=== PATIENT | male | born 1990 ===

== ENCOUNTER 2018-03-03 12:18 | Emergency (ER) | payer OTHER, SELFPAY ==
[2018-03-03 13:01] VITALS: BP 126/76; PULSE 104; RESP 17; TEMP 37.4; O2SAT 96
--- NOTE | 2018-03-03 13:05 | W.ED.GENAD ---
Discharge Plan Disposition Patient Disposition: HOME Condition: Stable Discharge Details Chief Complaint: PsychEval Clinical Impression: Hallucinations, Suicidal thoughts Primary Care Provider: JERRELL,LOCAL ED Provider: Yara Ross Home Meds and New Rx's Prescriptions: No Action No Known Home Meds RF: 0 Discharge Instructions Instructions: Suicide Prevention for Adults (ED), Psychiatric Hallucinations (ED) Additional Instructions: Please return immediately to the emergency department if you develop any new or worsening symptoms or if you become otherwise concerned. It is extremely important that you make an appointment to be seen by your primary care doctor within the next 1-2 weeks in follow-up for this visit. It is strongly advised that you cancel your travel plans and return home to be with family or friends that you trust and seek treatment from a physician. Discharge Data Discharge Date/Time-TO BE ENTERED AT DEPARTURE: 03/03/18 17:00 Medical Decision Making Brenda Araujo is a 27 y/o man without reported h/o major medical problems who presented to the emergency department with c/o hallucinations, feeling out of touch with reality, and suicidal thoughts without intent. On exam Pt is calm and cooperative, well and non-toxic. Normal behavior, normal thought process, no apparent hallucinations beyond Pt report. Somewhat odd affect. Exam/hx not c/w h/o self-injury, raymundo, salicylate OD, intoxication, active suicidality. Concern for possible schizophrenia vs other psychosis. Given long-standing symptoms, doubt organic etiology. Pt has decision-making capacity by my evaluation. Pt declines CT head. Plan for screening labs, screening EKG, IVF hydration, MH eval. states inpt treatment offered to Pt for psychotic symptoms, Pt declined. No indication to hold Pt against his will, which is in concordance with my evaluation. Pt stating that he does want further care at this time, and would prefer to f/u outpt when he leaves [place] and goes to [place] in a few days where he will be staying with friends. He does have plans to travel out of the country several weeks after going to [place]. He again states repeatedly that he does not now nor has he ever had intent to harm himself. He also states that he would not have sought care in the ED except that staff at meditation retreat wanted him to be evaluated for hallucinations, which is verified by retreat staff in the room (brought in from [facility] at request of Pt). Pt has capacity for decision-making. Lengthy discussion with Pt re: RTED precautions and importance of outpt f/u with PCP and psychiatry for further eval and treatment, also discussed that long-distance travel should be delayed until Pt has undergone treatment and symptoms are better-managed. Pt is amenable to plan, is discharged back to medication retreat with staff member. Medical Records Medical records reviewed: Yes I reviewed the patient's medical records. Lab Data Lab results reviewed: Yes I reviewed the patient's lab results. 03/03/18 13:55 Urine - Reflex from Ua Urine Culture - Final Gram Positive [facility] Laboratory Tests Range/Units 03/03/18 03/03/18 03/03/18 13:55 13:55 14:22 WBC (4.4-10.8) k/cumm RBC (4.50-6.00) m/cumm Hgb (13.5-17.5) g/dL Hct (40.0-50.0) % MCV (80-95) fL MCH (27.0-33.0) pg MCHC (32.0-36.0) g/dL RDW (11.8-14.1) % Plt Count (130-400) x1000/uL MPV (8.0-11.0) fL Immature Gran % Neutrophils % Lymphocytes % Monocytes % Eosinophils % Basophils % Absolute Neutrophils (1.2-6.7) k/cumm Absolute Lymphocytes (1.2-3.4) k/cumm Absolute Monocytes (0.11-0.7) k/cumm Absolute Eosinophils (0.0-0.7) k/cumm Absolute Basophils (0.0-0.2) k/cumm Sodium (136-145) mmol/L Potassium (3.5-5.1) mmol/L Chloride (98-107) mmol/L Carbon Dioxide (21.0-32.0) mmol/L Anion Gap (3-11) mmol/L BUN (7-18) mg/dL Creatinine (0.70-1.30) mg/dL Estimated GFR/1.73 m2 (mL/min/1.73m2) Glucose (70-100) mg/dL Calcium (8.5-10.1) mg/dL Total Bilirubin (0.2-1.0) mg/dL AST (15-37) U/L ALT (12-78) U/L Alkaline Phosphatase (46-116) U/L Total Protein (6.4-8.2) g/dL Albumin (3.4-5.0) g/dL TSH (0.358-3.74) uIU/mL 1.36 Urine Color (Yellow) Yellow Urine Clarity Clear Urine pH (5-8) 6.5 Ur Specific Riesel (1.005-1.025) 1.025 Urine Protein (Negative) mg/dL 100 H Urine Ketones (Negative) mg/dL >=160 Urine Blood (Negative) Negative Urine Nitrite (Negative) Negative Urine Bilirubin (Negative) Small H Urine Urobilinogen (Up TO 0.2) EU/dL 0.2 Ur Leukocyte Esterase (Negative) Negative Urine RBC (0-2) 0-2 Urine WBC (0-5) HPF 3-5 Ur Epithelial Cells (Negative) HPF Negative Urine Crystals (Negative) HPF Many amorphous Urine Bacteria (Negative) HPF Many Urine Casts (Negative) LPF Negative Urine Mucus (Negative) Heavy Urine Other (Negative) Rare renal Ur Culture Indicated? Yes Urine Glucose (Negative) mg/dL Negative Urine Opiates Screen (Negative) Negative Urine Methadone Screen (Negative) Negative Acetaminophen (10-30) ug/mL < 2 L Ur Barbiturates Screen (Negative) Negative Ur Tricyclics Screen (Negative) Negative Ur Amphetamines Screen (Negative) Negative U Benzodiazepines Scrn (Negative) Negative Urine Cocaine Screen (Negative) Negative Ur THC Screen (Negative) Negative Range/Units 03/03/18 03/03/18 14:22 14:22 WBC (4.4-10.8) k/cumm 8.95 RBC (4.50-6.00) m/cumm 4.56 Hgb (13.5-17.5) g/dL 14.9 Hct (40.0-50.0) % 44.4 MCV (80-95) fL 97.4 H MCH (27.0-33.0) pg 32.7 MCHC (32.0-36.0) g/dL 33.6 RDW (11.8-14.1) % 12.5 Plt Count (130-400) x1000/uL 241 MPV (8.0-11.0) fL 9.7 Immature Gran % 0.3 Neutrophils % 87.8 Lymphocytes % 6.9 Monocytes % 5.0 Eosinophils % 0.0 Basophils % 0.0 Absolute Neutrophils (1.2-6.7) k/cumm 7.85 H Absolute Lymphocytes (1.2-3.4) k/cumm 0.62 L Absolute Monocytes (0.11-0.7) k/cumm 0.45 Absolute Eosinophils (0.0-0.7) k/cumm 0.00 Absolute Basophils (0.0-0.2) k/cumm 0.00 Sodium (136-145) mmol/L 137 Potassium (3.5-5.1) mmol/L 3.7 Chloride (98-107) mmol/L 97 L Carbon Dioxide (21.0-32.0) mmol/L 27.6 Anion Gap (3-11) mmol/L 12.4 H BUN (7-18) mg/dL 12 Creatinine (0.70-1.30) mg/dL 1.08 Estimated GFR/1.73 m2 (mL/min/1.73m2) >= 60.00 Glucose (70-100) mg/dL 95 Calcium (8.5-10.1) mg/dL 9.1 Total Bilirubin (0.2-1.0) mg/dL 0.6 AST (15-37) U/L 34 ALT (12-78) U/L 22 Alkaline Phosphatase (46-116) U/L 71 Total Protein (6.4-8.2) g/dL 8.3 H Albumin (3.4-5.0) g/dL 3.9 TSH (0.358-3.74) uIU/mL Urine Color (Yellow) Urine Clarity Urine pH (5-8) Ur Specific Riesel (1.005-1.025) Urine Protein (Negative) mg/dL Urine Ketones (Negative) mg/dL Urine Blood (Negative) Urine Nitrite (Negative) Urine Bilirubin (Negative) Urine Urobilinogen (Up TO 0.2) EU/dL Ur Leukocyte Esterase (Negative) Urine RBC (0-2) Urine WBC (0-5) HPF Ur Epithelial Cells (Negative) HPF Urine Crystals (Negative) HPF Urine Bacteria (Negative) HPF Urine Casts (Negative) LPF Urine Mucus (Negative) Urine Other (Negative) Ur Culture Indicated? Urine Glucose (Negative) mg/dL Urine Opiates Screen (Negative) Urine Methadone Screen (Negative) Acetaminophen (10-30) ug/mL Ur Barbiturates Screen (Negative) Ur Tricyclics Screen (Negative) Ur Amphetamines Screen (Negative) U Benzodiazepines Scrn (Negative) Urine Cocaine Screen (Negative) Ur THC Screen (Negative) ECG Data Attestation: I personally reviewed and interpreted this ECG (s) as follows: Interpretation: EKG shows NSR at 76, nl axis, nl intervals. Non-diagnostic EKG. HPI General Mode of arrival: ambulatory. Date/Time Provider Initiated Documentation: 03/03/18 13:05. Limitations to Documentation: no limitations. Information obtained by: patient, RN notes reviewed and old records reviewed. HPI Narrative: Brenda Araujo is a 27 y/o man without reported h/o major medical problems presenting to the emergency department with c/o hallucinations, feeling out of touch with reality, and suicidal thoughts. Pt reports that he recently graduated from graduate school in [place] and has been attending a meditation retreat in this area for the past 11 days. He states that over the past few days he has been having hallucinations, both auditory and visual. He states the voices he hears are not organized and do not say anything specific to him. He states that the visual hallucinations are where he sees himself taking part in scenarios that he knows are not actually happening. Pt reports that he has occasional houghts of suicide by cutting his wrists, but he states that he does not want to and does not want to hurt himself. Has no intention of hurting himself, and states that thoughts of hurting himself and are transient and that he woud never act on them. He denies having auditory hallucinations instructing him to hurt himself. Pt denies any h/o self harm. Pt reports that he has been having hallucinations intermittently for the past 10 years, but states that he has not told anyone or sought medical treatment. He states that he has been able to manage them on his own. Pt was brought to the ED by staff at the meditation retreat when he told them that he was having the hallucinations. Pt reports that he has been sleeping normally but has not been eating or drinking much over the past few days. No homicidal ideation. No recent illness. Related Data Home Medications Medication Instructions Recorded Confirmed Unknown [No Known Home Meds] 03/03/18 03/03/18 Allergies Allergy/AdvReac Type Severity Reaction Status Date / Time No Known Allergies Allergy Unverified 03/03/18 14:07 General Stated Complaint: PsychEval TILA: 2 Review of Systems Review of Systems Constitutional: denies fevers Eyes: denies eye pain ENT: denies facial pain, dental pain, sore throat Cardiovascular: denies chest pain, edema Respiratory: denies SOB, cough GI: denies abdominal pain, vomiting, diarrhea : denies flank pain MSK: denies back pain, neck pain, arthralgias, myalgias Skin: denies rash Neuro: denies headaches, lightheadedness, weakness Psych: denies suicidal intent; reports suicidal thoughts, hallucinations [facility] Social History Smoking/Tobacco Use Status: Current-Occasional Exam Narrative Exam Narrative: Constitutional: well and day-[id number], pleasant, conversing normally HENT: head atraumatic, normocephalic normal inspection, mucous membranes moist Eyes: conjunctiva normal, sclera normal, pupils 3mm b/l Neck: no stridor, normal ROM, trachea midline Chest: normal inspection Resp: normal work of breathing, LCTAB Cardio: normal rate, normal rhythm, no murmur appreciated GI: abdomen soft, non-tender, non-distended Back: normal inspection, no rash Skin: warm, dry, normal color, no rash Neuro: alert and oriented x3, not altered, grossly non-focal, normal tone Ext: no edema Psych: normal mood, somewhat odd affect, normal behavior, no raymundo. Calm and cooperative. Lucid thought process. Course Vital Signs Temperature 37.4 C 03/03/18 13:01 Pulse 104 H 03/03/18 13:01 Respiratory Rate 17 03/03/18 13:01 Blood Pressure 126/76 03/03/18 13:01 Pulse Oximetry 96 03/03/18 13:01 Temperature 37.4 C 03/03/18 13:01 Temperature Source Temporal Artery Scan 03/03/18 13:01 Pulse 104 H 03/03/18 13:01 Respiratory Rate 17 03/03/18 13:01 Blood Pressure 126/76 03/03/18 13:01 Pulse Oximetry 96 03/03/18 13:01 Oxygen Delivery Method Room Air 03/03/18 13:01 Oxygen Flow Rate 0 03/03/18 13:01 Pain Level 0 03/03/18 13:01
--- NOTE | 2018-03-03 13:50 | PDOC.ERCMPRO ---
Care Management Progress Note 03/03-Patient in emergency department for suicidal ideation. Provider has ordered CPSO. Celia Nursing Industrial Technology Teacher is aware. Discussion with provider that a holding care plan be in place until mental health arrives and evaluates. Once patient is seen by mental health, a huddle will be called and a new care plan will be written and distributed to appropriate staff. [facility] 03/03/18 1. Suicide Precautions 2. Patient to be in paper clothing 3. Comfort bath system for personal hygiene 4. No personal belongings in room 5. Finger foods only 6. No telephone 7. No visitors 8. Supervised Bathroom Privileges 9. Patient to have one on one, licensed sitter, PLASTIC TILE SETTER, INDUSTRIAL AERIAL INSTALLER, meter changes records clerk. 10. May have crayons, paper, and activities (if appropriate) from the Mental Health Activity Cart in ED This is a holding care plan only. This Care Plan will remain in effect until mental health evaluates, huddle is held, and a new care plan written.
--- NOTE | 2018-03-03 13:55 | CMPROGNOTE_ITS ---
Care Management Progress Note 03/03-Patient in emergency department for suicidal ideation. Provider has ordered CPSO. Celia Nursing Academic Coach is aware. Discussion with provider that a holding care plan be in place until mental health arrives and evaluates. Once patient is seen by mental health, a huddle will be called and a new care plan will be written and distributed to appropriate staff. [facility] 03/03/18 1. Suicide Precautions 2. Patient to be in paper clothing 3. Comfort bath system for personal hygiene 4. No personal belongings in room 5. Finger foods only 6. No telephone 7. No visitors 8. Supervised Bathroom Privileges 9. Patient to have one on one, licensed sitter, HOTEL FRONT OFFICE MANAGER, WIND ENERGY SYSTEMS INSTALLER, early childhood educator aide. 10. May have crayons, paper, and activities (if appropriate) from the Mental Health Activity Cart in ED This is a holding care plan only. This Care Plan will remain in effect until mental health evaluates, huddle is held, and a new care plan written.
[2018-03-03 14:02] LABS: Bilirubin Small (Negative); Blood Negative (Negative); Clarity Clear; Glucose Negative (Negative); Ketones >=160 mg/dL (Negative); Leukocyte Esterase Negative (Negative); Nitrite Negative (Negative); Specific Gravity 1.025 (1.005-1.025); Urobilinogen 0.2 EU/dL (Up TO 0.2); pH 6.5 (5-8)
[2018-03-03 14:11] LABS: Bacteria Many HPF (Negative); C & S Indicated? Yes; Casts Negative LPF (Negative); Crystals Many Amorphous HPF (Negative); Epithelial Cells Negative HPF (Negative); Mucus Heavy (Negative); Other Cells Rare Renal (Negative); RBC 0-2 (0-2)
[2018-03-03 14:13] LABS: *AMPHETAMINES SCREEN URINE Negative (Negative); *BARBITURATES SCREEN URINE Negative (Negative); *BENZODIAZEPINES SCREEN URINE Negative (Negative); Cannabinoids THC Negative (Negative); Cocaine Screen,Urine Negative (Negative); METHADONE URINE SCREEN Negative (Negative); OPIATES URINE SCREEN Negative (Negative)
[2018-03-03 14:16] LABS: Tricyclic Antidepressants Negative (Negative)
[2018-03-03 14:28] LABS: Abs Immature Grans 0.03 k/cumm (0.0-0.09); Absolute Lymphocyte Count 0.62 k/cumm (1.2-3.4); Absolute Monocyte Count 0.45 k/cumm (0.11-0.7); Absolute Neutrophil Count 7.85 k/cumm (1.2-6.7); HCT 44.4 % (40.0-50.0); HGB 14.9 g/dL (13.5-17.5); Immature Grans % 0.3; Lymphocytes % 6.9; Mean Corp. HGB Concentration 33.6 g/dL (32.0-36.0); Mean Corpuscular Hemoglobin 32.7 pg (27.0-33.0); Mean Corpuscular Volume 97.4 fL (80-95); Mean Platelet Volume 9.7 fL (8.0-11.0); Neutrophils % 87.8; Platelet Count 241 x1000/uL (130-400); RBC 4.56 m/cumm (4.50-6.00); RBC Distribution Width 12.5 % (11.8-14.1); White Blood Cell Count 8.95 k/cumm (4.4-10.8)
[2018-03-03 14:42] LABS: ALT 22 U/L (12-78); AST 34 U/L (15-37); Albumin 3.9 g/dL (3.4-5.0); Alkaline Phosphatase 71 U/L (46-116); Anion Gap 12.4 mmol/L (3-11); BUN 12 mg/dL (7-18); Bilirubin, Total 0.6 mg/dL (0.2-1.0); CO2 27.6 mmol/L (21.0-32.0); CREATININE 1.08 mg/dL (0.70-1.30); Calcium 9.1 mg/dL (8.5-10.1); Chloride 97 mmol/L (98-107); Glucose 95 mg/dL (70-100); Potassium 3.7 mmol/L (3.5-5.1); Sodium 137 mmol/L (136-145); Total Protein 8.3 g/dL (6.4-8.2)
[2018-03-03] MEDS: Normal Saline 1,000 ML 1000 ML IV (14:47)
[2018-03-03 14:53] LABS: TSH (W/Ref FT4) 1.36 uIU/mL (0.358-3.74)
[2018-03-03 15:04] LABS: Acetaminophen < 2 ug/mL (10-30)
--- NOTE | 2018-03-03 16:56 | PDOC.MHCN ---
Date of service: 03/03/18 Time of Service: 16:58 Mental Health Crisis Note Presenting Issue How did you arrive at the ED and why did you come: Patient arrived at the hospital by private vehicle because he was experiencing suicidal ideation. Precipitating Factors Patient states that he did initially feel suicidal when he arrived at the hospital but he states that he feels much better now and would like to go home. He is future oriented and looks forward to upcoming travels to [email or web address] before starting a job in [employer] in April. The client states that he has had trouble with psychosis (audio/visual hallucinatoins) in the eric but has been able to work though episodes. He states that the voices in his head make him think negative thoughts Disposition BEHAVIOR: No abnormal behavior to report EYE CONTACT: Direct MOOD: Calm but anxious to leave and see his friend. AFFECT: Restricted APPETITE: Patient states good SLEEP(trouble falling/staying asleep: Patient states good Plan Patient has contracted for safety. He states that he will be safe if he leaves the hospital. Patient states that he wishes to go back to the meditation retreat he has been staying at for the last 10 days. Patient was advised to call [facility] anytime if he was to have thoughts or feelings of SI/HI. 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
--- NOTE | 2018-03-03 17:12 | PDOC.MHCN_ITS ---
Date of service: 03/03/18 Time of Service: 16:58 Mental Health Crisis Note Presenting Issue How did you arrive at the ED and why did you come: Patient arrived at the hospital by private vehicle because he was experiencing suicidal ideation. Precipitating Factors Patient states that he did initially feel suicidal when he arrived at the hospital but he states that he feels much better now and would like to go home. He is future oriented and looks forward to upcoming travels to [place] before starting a job in [place] in April. The client states that he has had trouble with psychosis (audio/visual hallucinatoins) in the eric but has been able to work though episodes. He states that the voices in his head make him think negative thoughts Disposition BEHAVIOR: No abnormal behavior to report EYE CONTACT: Direct MOOD: Calm but anxious to leave and see his friend. AFFECT: Restricted APPETITE: Patient states good SLEEP(trouble falling/staying asleep: Patient states good Plan Patient has contracted for safety. He states that he will be safe if he leaves the hospital. Patient states that he wishes to go back to the meditation retreat he has been staying at for the last 10 days. Patient was advised to call [facility] anytime if he was to have thoughts or feelings of SI/HI. 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
--- NOTE | 2018-03-04 14:45 | ED.GENADUL_ITS ---
Discharge Plan Disposition Patient Disposition: HOME Condition: Stable Discharge Details Chief Complaint: PsychEval Clinical Impression: Hallucinations, Suicidal thoughts Primary Care Provider: JERRELL,[facility] ED Provider: Yara Ross Home Meds and New Rx's Prescriptions: No Action No Known Home Meds RF: 0 Discharge Instructions Instructions: Suicide Prevention for Adults (ED), Psychiatric Hallucinations ( ED) Additional Instructions: Please return immediately to the emergency department if you develop any new or worsening symptoms or if you become otherwise concerned. It is extremely important that you make an appointment to be seen by your primary care doctor within the next 1-2 weeks in follow-up for this visit. It is strongly advised that you cancel your travel plans and return home to be with family or friends that you trust and seek treatment from a physician. Discharge Data Discharge Date/Time-TO BE ENTERED AT DEPARTURE: 03/03/18 17:00 Medical Decision Making Brenda Araujo is a 27 y/o man without reported h/o major medical problems who presented to the emergency department with c/o hallucinations, feeling out of touch with reality, and suicidal thoughts without intent. On exam Pt is calm and cooperative, well and non-toxic. Normal behavior, normal thought process, no apparent hallucinations beyond Pt report. Somewhat odd affect. Exam/hx not c/ w h/o self-injury, raymundo, salicylate OD, intoxication, active suicidality. Concern for possible schizophrenia vs other psychosis. Given long-standing symptoms, doubt organic etiology. Pt has decision-making capacity by my evaluation. Pt declines CT head. Plan for screening labs, screening EKG, IVF hydration, MH eval. states inpt treatment offered to Pt for psychotic symptoms, Pt declined. No indication to hold Pt against his will, which is in concordance with my evaluation. Pt stating that he does want further care at this time, and would prefer to f/u outpt when he [place] and [place] where he will be staying with friends. He does have plans to travel out of the country several weeks after going to [place]. He again states repeatedly that he does not now nor has he ever had intent to harm himself. He also states that he would not have sought care in the ED except that staff at meditation retreat wanted him to be evaluated for hallucinations, which is verified by retreat staff in the room (brought in from [facility] at request of Pt). Pt has capacity for decision- making. Lengthy discussion with Pt re: RTED precautions and importance of outpt f/u with PCP and psychiatry for further eval and treatment, also discussed that long-distance travel should be delayed until Pt has undergone treatment and symptoms are better-managed. Pt is amenable to plan, is discharged back to medication retreat with staff member. Medical Records Medical records reviewed: Yes I reviewed the patient's medical records. Lab Data Lab results reviewed: Yes I reviewed the patient's lab results. 03/03/18 13:55 Urine - Reflex from [facility] Urine Culture - Final Gram Positive [facility] Laboratory Tests Range/Units 03/03/18 03/03/18 03/03/18 13:55 13:55 14:22 WBC (4.4-10.8) k/cumm RBC (4.50-6.00) m/cumm Hgb (13.5-17.5) g/dL Hct (40.0-50.0) % MCV (80-95) fL MCH (27.0-33.0) pg MCHC (32.0-36.0) g/dL RDW (11.8-14.1) % Plt Count (130-400) x1000/uL MPV (8.0-11.0) fL Immature Gran % Neutrophils % Lymphocytes % Monocytes % Eosinophils % Basophils % Absolute Neutrophils (1.2-6.7) k/cumm Absolute Lymphocytes (1.2-3.4) k/cumm Absolute Monocytes (0.11-0.7) k/cumm Absolute Eosinophils (0.0-0.7) k/cumm Absolute Basophils (0.0-0.2) k/cumm Sodium (136-145) mmol/L Potassium (3.5-5.1) mmol/L Chloride (98-107) mmol/L Carbon Dioxide (21.0-32.0) mmol/L Anion Gap (3-11) mmol/L BUN (7-18) mg/dL Creatinine (0.70-1.30) mg/dL Estimated GFR/1.73 m2 (mL/min/1.73m2) Glucose (70-100) mg/dL Calcium (8.5-10.1) mg/dL Total Bilirubin (0.2-1.0) mg/dL AST (15-37) U/L ALT (12-78) U/L Alkaline Phosphatase (46-116) U/L Total Protein (6.4-8.2) g/dL Albumin (3.4-5.0) g/dL TSH (0.358-3.74) uIU/mL 1.36 Urine Color (Yellow) Yellow Urine Clarity Clear Urine pH (5-8) 6.5 Ur Specific [place] (1.005-1.025) 1.025 Urine Protein (Negative) mg/dL 100 H Urine Ketones (Negative) mg/dL >=160 Urine Blood (Negative) Negative Urine Nitrite (Negative) Negative Urine Bilirubin (Negative) Small H Urine Urobilinogen (Up TO 0.2) EU/dL 0.2 Ur Leukocyte Esterase (Negative) Negative Urine RBC (0-2) 0-2 Urine WBC (0-5) HPF 3-5 Ur Epithelial Cells (Negative) HPF Negative Urine Crystals (Negative) HPF Many amorphous Urine Bacteria (Negative) HPF Many Urine Casts (Negative) LPF Negative Urine Mucus (Negative) Heavy Urine Other (Negative) Rare renal Ur Culture Indicated? Yes Urine Glucose (Negative) mg/dL Negative Urine Opiates Screen (Negative) Negative Urine Methadone Screen (Negative) Negative Acetaminophen (10-30) ug/mL < 2 L Ur Barbiturates Screen (Negative) Negative Ur Tricyclics Screen (Negative) Negative Ur Amphetamines Screen (Negative) Negative U Benzodiazepines Scrn (Negative) Negative Urine Cocaine Screen (Negative) Negative Ur THC Screen (Negative) Negative Range/Units 03/03/18 03/03/18 14:22 14:22 WBC (4.4-10.8) k/cumm 8.95 RBC (4.50-6.00) m/cumm 4.56 Hgb (13.5-17.5) g/dL 14.9 Hct (40.0-50.0) % 44.4 MCV (80-95) fL 97.4 H MCH (27.0-33.0) pg 32.7 MCHC (32.0-36.0) g/dL 33.6 RDW (11.8-14.1) % 12.5 Plt Count (130-400) x1000/uL 241 MPV (8.0-11.0) fL 9.7 Immature Gran % 0.3 Neutrophils % 87.8 Lymphocytes % 6.9 Monocytes % 5.0 Eosinophils % 0.0 Basophils % 0.0 Absolute Neutrophils (1.2-6.7) k/cumm 7.85 H Absolute Lymphocytes (1.2-3.4) k/cumm 0.62 L Absolute Monocytes (0.11-0.7) k/cumm 0.45 Absolute Eosinophils (0.0-0.7) k/cumm 0.00 Absolute Basophils (0.0-0.2) k/cumm 0.00 Sodium (136-145) mmol/L 137 Potassium (3.5-5.1) mmol/L 3.7 Chloride (98-107) mmol/L 97 L Carbon Dioxide (21.0-32.0) mmol/L 27.6 Anion Gap (3-11) mmol/L 12.4 H BUN (7-18) mg/dL 12 Creatinine (0.70-1.30) mg/dL 1.08 Estimated GFR/1.73 m2 (mL/min/1.73m2) >= 60.00 Glucose (70-100) mg/dL 95 Calcium (8.5-10.1) mg/dL 9.1 Total Bilirubin (0.2-1.0) mg/dL 0.6 AST (15-37) U/L 34 ALT (12-78) U/L 22 Alkaline Phosphatase (46-116) U/L 71 Total Protein (6.4-8.2) g/dL 8.3 H Albumin (3.4-5.0) g/dL 3.9 TSH (0.358-3.74) uIU/mL Urine Color (Yellow) Urine Clarity Urine pH (5-8) Ur Specific [place] (1.005-1.025) Urine Protein (Negative) mg/dL Urine Ketones (Negative) mg/dL Urine Blood (Negative) Urine Nitrite (Negative) Urine Bilirubin (Negative) Urine Urobilinogen (Up TO 0.2) EU/dL Ur Leukocyte Esterase (Negative) Urine RBC (0-2) Urine WBC (0-5) HPF Ur Epithelial Cells (Negative) HPF Urine Crystals (Negative) HPF Urine Bacteria (Negative) HPF Urine Casts (Negative) LPF Urine Mucus (Negative) Urine Other (Negative) Ur Culture Indicated? Urine Glucose (Negative) mg/dL Urine Opiates Screen (Negative) Urine Methadone Screen (Negative) Acetaminophen (10-30) ug/mL Ur Barbiturates Screen (Negative) Ur Tricyclics Screen (Negative) Ur Amphetamines Screen (Negative) U Benzodiazepines Scrn (Negative) Urine Cocaine Screen (Negative) Ur THC Screen (Negative) ECG Data Attestation: I personally reviewed and interpreted this ECG (s) as follows: Interpretation: EKG shows NSR at 76, nl axis, nl intervals. Non-diagnostic EKG. HPI General Mode of arrival: ambulatory . Date/Time Provider Initiated Documentation: 03/03/18 13:05 . Limitations to Documentation: no limitations . Information obtained by: patient, RN notes reviewed and old records reviewed . HPI Narrative: Brenda Araujo is a 27 y/o man without reported h/o major medical problems presenting to the emergency department with c/o hallucinations , feeling out of touch with reality, and suicidal thoughts. Pt reports that he recently graduated from graduate school in [place] and has been attending a meditation retreat in this area for the past 11 days. He states that over the past few days he has been having hallucinations, both auditory and visual. He states the voices he hears are not organized and do not say anything specific to him. He states that the visual hallucinations are where he sees himself taking part in scenarios that he knows are not actually happening. Pt reports that he has occasional houghts of suicide by cutting his wrists, but he states that he does not want to and does not want to hurt himself. Has no intention of hurting himself, and states that thoughts of hurting himself and are transient and that he woud never act on them. He denies having auditory hallucinations instructing him to hurt himself. Pt denies any h/o self harm. Pt reports that he has been having hallucinations intermittently for the past 10 years, but states that he has not told anyone or sought medical treatment. He states that he has been able to manage them on his own. Pt was brought to the ED by staff at the meditation retreat when he told them that he was having the hallucinations. Pt reports that he has been sleeping normally but has not been eating or drinking much over the past few days. No homicidal ideation. No recent illness. Related Data Home Medications Medication Instructions Recorded Confirmed Unknown [No Known Home Meds] 03/03/18 03/03/18 Allergies Allergy/AdvReac Type Severity Reaction Status Date / Time No Known Allergies Allergy Unverified 03/03/18 14:07 General Stated Complaint: PsychEval TILA: 2 Review of Systems Review of Systems Constitutional: denies fevers Eyes: denies eye pain ENT: denies facial pain, dental pain, sore throat Cardiovascular: denies chest pain, edema Respiratory: denies SOB, cough GI: denies abdominal pain, vomiting, diarrhea : denies flank pain MSK: denies back pain, neck pain, arthralgias, myalgias Skin: denies rash Neuro: denies headaches, lightheadedness, weakness Psych: denies suicidal intent; reports suicidal thoughts, hallucinations [facility] Social History Smoking/Tobacco Use Status: Current-Occasional Exam Narrative Exam Narrative: Constitutional: well and [id number], pleasant, conversing normally HENT: head atraumatic, normocephalic normal inspection, mucous membranes moist Eyes: conjunctiva normal, sclera normal, pupils 3mm b/l Neck: no stridor, normal ROM, trachea midline Chest: normal inspection Resp: normal work of breathing, LCTAB Cardio: normal rate, normal rhythm, no murmur appreciated GI: abdomen soft, non-tender, non-distended Back: normal inspection, no rash Skin: warm, dry, normal color, no rash Neuro: alert and oriented x3, not altered, grossly non-focal, normal tone Ext: no edema Psych: normal mood, somewhat odd affect, normal behavior, no raymundo. Calm and cooperative. Lucid thought process. Course Vital Signs Temperature 37.4 C 03/03/18 13:01 Pulse 104 H 03/03/18 13:01 Respiratory Rate 17 03/03/18 13:01 Blood Pressure 126/76 03/03/18 13:01 Pulse Oximetry 96 03/03/18 13:01 Temperature 37.4 C 03/03/18 13:01 Temperature Source Temporal Artery Scan 03/03/18 13:01 Pulse 104 H 03/03/18 13:01 Respiratory Rate 17 03/03/18 13:01 Blood Pressure 126/76 03/03/18 13:01 Pulse Oximetry 96 03/03/18 13:01 Oxygen Delivery Method Room Air 03/03/18 13:01 Oxygen Flow Rate 0 03/03/18 13:01 Pain Level 0 03/03/18 13:01
== END 2018-03-03 17:00 | disposition home or self-care (01) ==
PROVIDERS: Emergency Provider Student in an Organized Health Care Education/Training Program
DX: R44.0 Auditory hallucinations (principal); R44.1 Visual hallucinations; R45.851 Suicidal ideations; Z53.29 Procedure and treatment not carried out because of patient's decision for other reasons
CPT/HCPCS: 36415; 80053; 80307; 93005; 96360; 99284; 80329; 81003; 81015; 84443; 85025; 87086; 93010